=== PATIENT | male | born 1990 ===

== ENCOUNTER 2023-10-28 04:58 | Day surgery (SDC) | payer BC ==
[2023-10-28 05:45] LABS: BASOPHILS ABSOLUTE AUTO 0.03 K/uL (0.00-0.20); BASOPHILS PERCENT AUTO 0.2 % (0.0-1.0); EOSINOPHILS ABSOLUTE AUTO 0.02 K/uL (0.00-0.45); EOSINOPHILS PERCENT AUTO 0.1 % (0.0-6.0); HEMATOCRIT 42.1 % (42.0-52.0); HEMOGLOBIN 14.7 g/dL (14.0-18.0); IMMATURE GRAN ABSOLUTE AUTO 0.03 K/uL (0.00-0.05); IMMATURE GRAN PERCENT AUTO 0.2 % (0.0-0.4); LYMPHOCYTES ABSOLUTE AUTO 1.48 K/uL (1.00-4.80); LYMPHOCYTES PERCENT AUTO 10.1 % (24.0-44.0); MEAN CORPUSCULAR HEMOGLOBIN 26.2 pg (28.0-32.0); MEAN CORPUSCULAR HGB CONC 34.9 g/dL (32.0-36.0); MEAN CORPUSCULAR VOLUME 74.9 fL (83.0-99.0); MEAN PLATELET VOLUME 10.2 fL (9.4-12.4); MONOCYTES PERCENT AUTO 3.4 % (0.0-8.0); NEUTROPHILS ABSOLUTE AUTO 12.66 K/uL (1.80-7.70); PLATELET COUNT,PLT 251 K/uL (150-400); RED BLOOD CELL COUNT 5.62 M/uL (4.52-5.90); WHITE BLOOD CELL COUNT,WBC 14.72 K/uL (3.9-11.3)
[2023-10-28] MEDS: Ketorolac 30 MG/ML SDV IVPUSH ONE ×2 (05:47→05:48)
[2023-10-28] MEDS: Sodium Chloride 0.9% 2.5 ML Syringe FLUSH PRN (05:49)
[2023-10-28] MEDS: Sodium Chloride 0.9% 10 ML Syringe FLUSH PRN (05:50)
[2023-10-28] MEDS: Iopamidol 755 MG/ML 500 ML Multipack Bottle IVPUSH STA (05:55)
[2023-10-28 06:10] LABS: A/G RATIO 1.1 (0.9-1.6); ALBUMIN 4.2 g/dL (3.4-5.0); BILIRUBIN TOTAL 0.6 mg/dL (0.2-1.0); CALCIUM 9.6 mg/dL (8.5-10.1); CARBON DIOXIDE,CO2 30.3 mmol/L (21.0-32.0); CREATININE 1.2 mg/dL (0.8-1.3); EST CRCL DRUG DOSING (CG) 89.19 mL/min; POTASSIUM,K 3.9 mmol/L (3.5-5.1)
[2023-10-28 06:12] LABS: LACTIC ACID 1.6 mmol/L (0.4-2.0)
[2023-10-28] MEDS ORDERED: Piperacillin/Tazobactam 3.375 GM in Sodium Chloride 0.9% 100 ML IV ONE (06:30)
[2023-10-28] MEDS: Piperacillin/Tazobactam 4.5 GM in Sodium Chloride 0.9% 100 ML IV ONE (07:01)
[2023-10-28] MEDS ORDERED: Dexamethasone 4 MG/ML 5 ML MDV ONE (07:59)
[2023-10-28] MEDS ORDERED: Metoclopramide 10 MG/2 ML SDV ONE (07:59)
[2023-10-28] MEDS ORDERED: Ondansetron 4 MG/2 ML SDV ONE (07:59)
[2023-10-28] MEDS ORDERED: Morphine 10 MG/ML SDV ONE (07:59)
[2023-10-28] MEDS ORDERED: Lidocaine 2% 5 ML SDV ONE (07:59)
[2023-10-28] MEDS ORDERED: fentaNYL 100 MCG/2 ML SDV ONE (07:59)
[2023-10-28] MEDS ORDERED: Rocuronium Bromide 50 MG/5 ML Syringe ONE (07:59)
[2023-10-28] MEDS ORDERED: propofoL 100 ML ONE (08:01)
[2023-10-28] MEDS ORDERED: Ropivacaine 0.5% 5 MG/ML 30 ML SDV ONE (08:01)
[2023-10-28] MEDS ORDERED: Magnesium Sulfate (4.06 MEQ/ML) 5 GM/10 ML SDV ONE (08:06)
[2023-10-28] MEDS ORDERED: Lidocaine 2% 11 ML Jelly Filled Syringe ONE (08:07)
[2023-10-28] MEDS: Scopalamine 1mg/3day Transdermal Patch TRDERM PRN (08:50)
[2023-10-28] MEDS ORDERED: Bupivacaine 0.5% 30 ML SDV ONE ×2 (09:12→10:43)
[2023-10-28] MEDS ORDERED: Bupivacaine 0.25% 30 ML SDV ONE (09:13)
[2023-10-28] MEDS ORDERED: dexmedeTOMIDine HCl 200 MCG/2 ML SDV ONE (09:16)
[2023-10-28] MEDS ORDERED: Water For Injection, Sterile 20 ML ONE (09:16)
[2023-10-28] MEDS ORDERED: Ketamine HCL/NACL, ISO-OSM 50 MG/5 ML Syringe ONE (11:59)
[2023-10-28] MEDS ORDERED: Ketorolac 30 MG/ML SDV ONE (12:08)
[2023-10-28] MEDS ORDERED: Sugammadex Sodium 200 MG/2 ML VIAL IV ONE ×2 (12:25→12:42)
[2023-10-28] MEDS ORDERED: diphenhydrAMINE 50 MG/ML SDV IVPUSH PRN (13:15)
[2023-10-28] MEDS ORDERED: Sodium Chloride 0.9% 20 ML SDV IV PRN (13:15)
[2023-10-28] MEDS ORDERED: Sodium Chloride 0.9% 2.5 ML Syringe FLUSH PRN (13:15)
[2023-10-28] MEDS ORDERED: Sodium Chloride 0.9% 10 ML Syringe FLUSH PRN (13:15)
[2023-10-28] MEDS ORDERED: Ondansetron 4 MG/2 ML SDV IVPUSH PRN (13:15)
[2023-10-28] MEDS ORDERED: HYDROmorphone 2 MG/ML Syringe IVPUSH PRN (13:15)
[2023-10-28] MEDS ORDERED: Acetaminophen/oxyCODONE 325-5 MG Tab PO PRN (13:15)
[2023-10-28] MEDS: Gabapentin 300 MG Cap ONE (13:41)
[2023-10-28] MEDS: Lactated Ringers 1,000 ML IV SCH (15:09)
== END 2023-10-28 18:22 | disposition home or self-care (01) ==
LOC: MW.ED 04:58 → UNDOADMOB 06:31 → MW.MS 06:31 → MW.SDS 06:31 → MW.MS 07:49 → UNDODISOB 18:15 → MW.SDS 18:22
PROVIDERS: ATTEND Surgery
DX: K35.33 Acute appendicitis with perforation, localized peritonitis, and gangrene, with abscess (principal); I10 Essential (primary) hypertension; G47.33 Obstructive sleep apnea (adult) (pediatric); Z79.899 Other long term (current) drug therapy
CPT/HCPCS: 36415; 44970; 64488; 74177; 80053; 83605; 85025; 96365; 96375; 99285; A9270; J0131; J0665; J1100; J1885; J2270; J2543; J2704; J2765; J2795; J3010; J3475; J3490; J7120; Q9967; 00840; 99284; J2405